=== PATIENT | male | born 1940 | race Hispanic/Latino ===

== ENCOUNTER 2018-05-11 10:44 | Inpatient (IN) | payer MEDICARE ==
[~2018-05-11] VITALS: Ht 170.2 cm; Wt 71.7 kg
[~2018-05-11 10:44] MED LIST: ACET650T9 PO; ALLO100T PO; CARV12.511 PO; FURO20TA4 PO; MEMA10TA20 PO; MOME17SP10 NS; SERT50TA12 PO; SPIR25TA PO
[2018-05-11] MEDS ORDERED: SODIUM CHLORIDE 0.9% 1000ML 1,000 ML IV ONE (11:17)
[2018-05-11 11:34] LABS: BASOPHILS % (AUTO) 1.4 % (0.0-5.0); EOSINOPHILS % (AUTO) 6.6 % (0.0-8.0); MEAN CORPUSCULAR HEMOGLOBIN 23.2 pg (27.0-33.0); MEAN CORPUSCULAR HGB CONC 32.1 g/dL (32.0-36.0); MEAN CORPUSCULAR VOLUME 72.4 fL (79-99); MONOCYTES % (AUTO) 9.1 % (3.0-13.0); NEUTROPHILS % (AUTO) 63.9 % (40.0-77.0); NUCLEATED RED BLOOD CELLS 0.3 % (0.0-0.19); PLATELET COUNT (AUTO) 178 K/uL (130-400); RED BLOOD CELL COUNT(AUTO) 2.89 MIL/uL (4.50-6.20); RED CELL DISTRIBUTION WIDTH 17.2 % (11.0-15.5); WHITE BLOOD COUNT (AUTO) 5.7 K/uL (4.8-10.8)
[2018-05-11 11:39] LABS: CREATININE 1.1 mg/dL (0.5-1.5); POTASSIUM 3.5 mmol/L (3.5-5.1)
[2018-05-11 11:43] LABS: ALBUMIN 3.5 g/dL (3.5-5.0); BILIRUBIN,TOTAL 0.3 mg/dL (0.2-1.0); TOTAL PROTEIN, SERUM 7.3 g/dL (6.0-8.3)
[2018-05-11 11:48] LABS: INR 1.15 (0.85-1.15); PARTIAL THROMBOPLASTIN TIME 33.8 SEC (26.3-35.5)
[2018-05-11 12:02] LABS: HEMATOCRIT 20.9 % (42-54)
[2018-05-11 13:01] LABS: APPEARANCE,URINE Clear (CLEAR); BILIRUBIN,URINE Negative (NEGATIVE); COLOR,URINE Yellow (YELLOW); GLUCOSE, URINE (UA) Negative (NEGATIVE); KETONES,URINE Negative (NEGATIVE); LEUKOCYTE ESTERASE ,URINE Negative (NEGATIVE); NITRATE,URINE Negative (NEGATIVE); OCCULT BLOOD,URINE Negative (NEGATIVE); PROTEIN,URINE Negative (NEGATIVE); UROBILINOGEN,URINE 0.2 mg/dL (0.2-1.0)
[2018-05-11 14:00] LABS: FERRITIN 13 ng/mL (30-400); IRON, SERUM 175 mcg/dL (65-175)
[2018-05-11] MEDS ORDERED: ACETAMINOPHEN 325 MG TAB PO PRN (15:00)
[2018-05-11] MEDS ORDERED: ONDANSETRON HCL 4 MG/2 ML VIAL IVP PRN (15:00)
[2018-05-11 15:04] LABS: HEMATOCRIT 20.8 % (42-54)
[2018-05-11 15:40] VITALS: BP 160/99
[2018-05-11] MEDS ORDERED: FLUT16H NS (18:03)
[2018-05-11] MEDS ORDERED: PARO10TA71 PO (18:03)
[2018-05-11] MEDS ORDERED: GABA-529 PO (18:03)
[2018-05-11] MEDS ORDERED: FERS325 PO (18:03)
[2018-05-11] MEDS ORDERED: SACU1TAB PO (18:03)
[2018-05-11] MEDS ORDERED: RIVA1TAB PO (18:03)
[2018-05-11] MEDS ORDERED: SODIUM CHLORIDE 0.9% 250 ML IV ONE (18:57)
[2018-05-11 19:30] VITALS: BP 147/77
[2018-05-11] MEDS ORDERED: COMPOUND IV MISC 1 EACH IVSOLN MISC PRN (19:30)
[2018-05-11] MEDS: PANTOPRAZOLE 40 MG/VIAL IVP SCH (21:13)
[2018-05-11 23:20] VITALS: BP 145/81
[2018-05-12] VITALS (18 sets, daily range): BP systolic 91–180; BP diastolic 52–92
[2018-05-12 05:15] LABS: HEMATOCRIT 29.6 % (42-54); MEAN CORPUSCULAR HGB CONC 32.6 g/dL (32.0-36.0); MEAN CORPUSCULAR VOLUME 76.7 fL (79-99); PLATELET COUNT (AUTO) 212 K/uL (130-400); RED BLOOD CELL COUNT(AUTO) 3.86 MIL/uL (4.50-6.20); RED CELL DISTRIBUTION WIDTH 20.2 % (11.0-15.5); WHITE BLOOD COUNT (AUTO) 8.8 K/uL (4.8-10.8)
[2018-05-12 05:26] LABS: INR 1.13 (0.85-1.15); PARTIAL THROMBOPLASTIN TIME 32.3 SEC (26.3-35.5); PROTHROMBIN TIME 11.8 SEC (9.6-11.6)
[2018-05-12 05:29] LABS: ALBUMIN 3.5 g/dL (3.5-5.0); BILIRUBIN,TOTAL 1.8 mg/dL (0.2-1.0); CREATININE 1.1 mg/dL (0.5-1.5); POTASSIUM 3.3 mmol/L (3.5-5.1); TOTAL PROTEIN, SERUM 7.2 g/dL (6.0-8.3)
[2018-05-12] MEDS: IRON SUCROSE COMPLEX 100 MG in SODIUM CHLORIDE 0.9% 50 ML IV SCH (08:19)
[2018-05-12] MEDS ORDERED: LIDOCAINE HCL-MPF 1% 2ML VIAL IVP PRN (10:30)
[2018-05-12] MEDS: PANTOPRAZOLE 40 MG/VIAL IVP SCH (10:32)
[2018-05-12] MEDS: POTASSIUM CHLORIDE 20MEQ/100ML 100 ML IV PRN ×2 (10:36→22:28)
[2018-05-12] MEDS ORDERED: PEG 3350/NA SULF,BICARB,CL/KCL 4000 ML SOLN PO SCH (17:30)
[2018-05-13] VITALS (21 sets, daily range): BP systolic 70–175; BP diastolic 41–94
[2018-05-13 05:13] LABS: HEMATOCRIT 27.4 % (42-54); MEAN CORPUSCULAR HEMOGLOBIN 24.1 pg (27.0-33.0); MEAN CORPUSCULAR HGB CONC 31.6 g/dL (32.0-36.0); MEAN CORPUSCULAR VOLUME 76.3 fL (79-99); NUCLEATED RED BLOOD CELLS 0.1 % (0.0-0.19); PLATELET COUNT (AUTO) 167 K/uL (130-400); RED CELL DISTRIBUTION WIDTH 20.5 % (11.0-15.5); WHITE BLOOD COUNT (AUTO) 6.8 K/uL (4.8-10.8)
[2018-05-13 05:21] LABS: POTASSIUM 3.3 mmol/L (3.5-5.1)
[2018-05-13 05:35] LABS: BASOPHILS % (MANUAL) 2 % (0-2); EOSINOPHILS % (MANUAL) 4 % (1-6); LYMPHOCYTES % (MANUAL) 17 % (22-44); MAN.DIFF COMMENT-IMPRESSION MANUAL DIFFERENTIAL; MONOCYTES % (MANUAL) 6 % (2-9); REACTIVE LYMPHOCYTES 1 % (0-0); SEGMENTED NEUTROPHILS % 70 % (40-70)
[2018-05-13] MEDS ORDERED: PROPOFOL 10 MG/ML 20ML VIAL IV ONE ×2 (06:56→07:22)
[2018-05-13] MEDS: PANTOPRAZOLE 40 MG/VIAL IVP SCH (09:35)
[2018-05-13] MEDS: IRON SUCROSE COMPLEX 100 MG in SODIUM CHLORIDE 0.9% 50 ML IV SCH (09:36)
[2018-05-13] MEDS ORDERED: POTASSIUM CHLORIDE 10% ELIXIR 20 MEQ/15 ML UDCUP PO PRN (13:15)
[2018-05-13] MEDS: LIDOCAINE HCL-MPF 1% 2ML VIAL IVP PRN (22:29)
[2018-05-13] MEDS: POTASSIUM CHLORIDE 20MEQ/100ML 100 ML IV PRN (22:29)
[2018-05-14 00:37] VITALS: BP 146/78
[2018-05-14] MEDS: LIDOCAINE HCL-MPF 1% 2ML VIAL IVP PRN (01:35)
[2018-05-14] MEDS: POTASSIUM CHLORIDE 20MEQ/100ML 100 ML IV PRN (01:35)
[2018-05-14 04:20] VITALS: BP 141/96
[2018-05-14 05:54] LABS: BASOPHILS % (AUTO) 0.8 % (0.0-5.0); EOSINOPHILS % (AUTO) 2.6 % (0.0-8.0); HEMATOCRIT 28.3 % (42-54); LYMPHOCYTES % (AUTO) 12.4 % (21.0-51.0); MEAN CORPUSCULAR HEMOGLOBIN 25.1 pg (27.0-33.0); MEAN CORPUSCULAR HGB CONC 32.4 g/dL (32.0-36.0); MEAN CORPUSCULAR VOLUME 77.5 fL (79-99); MONOCYTES % (AUTO) 7.6 % (3.0-13.0); NEUTROPHILS % (AUTO) 76.6 % (40.0-77.0); NUCLEATED RED BLOOD CELLS 0.1 % (0.0-0.19); PLATELET COUNT (AUTO) 182 K/uL (130-400); RED BLOOD CELL COUNT(AUTO) 3.65 MIL/uL (4.50-6.20); RED CELL DISTRIBUTION WIDTH 21.2 % (11.0-15.5); WHITE BLOOD COUNT (AUTO) 8.9 K/uL (4.8-10.8)
[2018-05-14 06:06] LABS: POTASSIUM 3.6 mmol/L (3.5-5.1)
[2018-05-14] MEDS: IRON SUCROSE COMPLEX 100 MG in SODIUM CHLORIDE 0.9% 50 ML IV SCH (08:41)
[2018-05-14] MEDS: PANTOPRAZOLE 40 MG/VIAL IVP SCH (08:41)
[2018-05-14 08:42] VITALS: BP 142/88
[2018-05-14 12:54] VITALS: BP 141/80
[2018-05-14 16:58] VITALS: BP 156/90
[2018-05-14 19:40] VITALS: BP 153/77
[2018-05-15 00:40] VITALS: BP 159/88
[2018-05-15 04:50] VITALS: BP 151/81
[2018-05-15 05:42] LABS: HEMATOCRIT 29.3 % (42-54); MEAN CORPUSCULAR HEMOGLOBIN 24.5 pg (27.0-33.0); MEAN CORPUSCULAR HGB CONC 31.5 g/dL (32.0-36.0); MEAN CORPUSCULAR VOLUME 77.8 fL (79-99); NUCLEATED RED BLOOD CELLS 0.1 % (0.0-0.19); PLATELET COUNT (AUTO) 166 K/uL (130-400); RED BLOOD CELL COUNT(AUTO) 3.77 MIL/uL (4.50-6.20); RED CELL DISTRIBUTION WIDTH 22.3 % (11.0-15.5); WHITE BLOOD COUNT (AUTO) 7.9 K/uL (4.8-10.8)
[2018-05-15 06:34] LABS: BAND NEUTROPHILS % (MANUAL) 2 % (0-2); EOSINOPHILS % (MANUAL) 4 % (1-6); LYMPHOCYTES % (MANUAL) 12 % (22-44); MAN.DIFF COMMENT-IMPRESSION MANUAL DIFFERENTIAL; MONOCYTES % (MANUAL) 6 % (2-9); SEGMENTED NEUTROPHILS % 76 % (40-70)
[2018-05-15 06:35] LABS: PLATELET MORPHOLOGY COMMENT SLIGHTLY DECREASED
[2018-05-15] MEDS ORDERED: DIATR MEGLU/DIATRIZOATE SODIUM 30 ML BOTTLE ONE (06:58)
[2018-05-15 08:32] VITALS: BP 148/95
[2018-05-15] MEDS: IRON SUCROSE COMPLEX 100 MG in SODIUM CHLORIDE 0.9% 50 ML IV SCH (10:09)
[2018-05-15] MEDS: PANTOPRAZOLE 40 MG/VIAL IVP SCH (10:10)
[2018-05-15] MEDS ORDERED: IOHEXOL-350 75 ML VIAL IV ONE (11:28)
[2018-05-15 11:40] VITALS: BP 152/91
[2018-05-15 17:09] VITALS: BP 143/72
[2018-05-15 20:01] VITALS: BP 150/94
[2018-05-15] MEDS: CARVEDILOL 12.5 MG TABLET PO SCH (20:56)
[2018-05-15] MEDS: ENTRESTO PO SCH (20:58)
[2018-05-16] VITALS: BP 120/72
[2018-05-16 04:00] VITALS: BP 136/71
[2018-05-16 04:50] LABS: HEMATOCRIT 28.4 % (42-54); MEAN CORPUSCULAR HEMOGLOBIN 25.6 pg (27.0-33.0); MEAN CORPUSCULAR HGB CONC 32.7 g/dL (32.0-36.0); MEAN CORPUSCULAR VOLUME 78.4 fL (79-99); PLATELET COUNT (AUTO) 173 K/uL (130-400); RED BLOOD CELL COUNT(AUTO) 3.62 MIL/uL (4.50-6.20); RED CELL DISTRIBUTION WIDTH 23.9 % (11.0-15.5); WHITE BLOOD COUNT (AUTO) 6.6 K/uL (4.8-10.8)
[2018-05-16 04:57] LABS: POTASSIUM 3.6 mmol/L (3.5-5.1)
[2018-05-16 05:13] LABS: EOSINOPHILS % (MANUAL) 9 % (1-6); LYMPHOCYTES % (MANUAL) 13 % (22-44); MAN.DIFF COMMENT-IMPRESSION MANUAL DIFFERENTIAL; MONOCYTES % (MANUAL) 6 % (2-9); SEGMENTED NEUTROPHILS % 72 % (40-70)
[2018-05-16 05:14] LABS: PLATELET MORPHOLOGY COMMENT ADEQUATE
[2018-05-16] MEDS: POTASSIUM CHLORIDE 20 MEQ ERTAB PO PRN ×2 (06:10→09:38)
[2018-05-16 08:00] VITALS: BP 152/91
[2018-05-16] MEDS: ENTRESTO PO SCH ×2 (09:00→20:36)
[2018-05-16] MEDS: PANTOPRAZOLE 40 MG/VIAL IVP SCH (09:19)
[2018-05-16] MEDS: CARVEDILOL 12.5 MG TABLET PO SCH ×2 (09:19→20:36)
[2018-05-16] MEDS: FUROSEMIDE 20 MG TABLET PO SCH (09:20)
[2018-05-16] MEDS: SPIRONOLACTONE 25 MG TAB PO SCH (09:20)
[2018-05-16 11:00] VITALS: BP 121/70
[2018-05-16 16:00] VITALS: BP 141/80
[2018-05-16 20:00] VITALS: BP 146/77
[2018-05-16] MEDS: IRON SUCROSE COMPLEX 100 MG in SODIUM CHLORIDE 0.9% 50 ML IV SCH (20:36)
[2018-05-17] VITALS (7 sets, daily range): BP systolic 124–165; BP diastolic 70–92
[2018-05-17] MEDS: PANTOPRAZOLE 40 MG/VIAL IVP SCH (08:34)
[2018-05-17] MEDS: ENTRESTO PO SCH ×2 (08:35→21:00)
[2018-05-17] MEDS: CARVEDILOL 12.5 MG TABLET PO SCH ×2 (08:35→21:56)
[2018-05-17] MEDS: SPIRONOLACTONE 25 MG TAB PO SCH (08:35)
[2018-05-17] MEDS: FUROSEMIDE 20 MG TABLET PO SCH (08:35)
[2018-05-17] MEDS: IRON SUCROSE COMPLEX 100 MG in SODIUM CHLORIDE 0.9% 50 ML IV SCH (08:35)
[2018-05-17 08:45] LABS: HEMATOCRIT 34.4 % (42-54); MEAN CORPUSCULAR HEMOGLOBIN 24.7 pg (27.0-33.0); MEAN CORPUSCULAR HGB CONC 31.2 g/dL (32.0-36.0); MEAN CORPUSCULAR VOLUME 79.4 fL (79-99); PLATELET COUNT (AUTO) 166 K/uL (130-400); RED BLOOD CELL COUNT(AUTO) 4.34 MIL/uL (4.50-6.20); RED CELL DISTRIBUTION WIDTH 25.2 % (11.0-15.5); WHITE BLOOD COUNT (AUTO) 7.2 K/uL (4.8-10.8)
[2018-05-17 08:58] LABS: ALBUMIN 3.4 g/dL (3.5-5.0); BILIRUBIN,TOTAL 0.7 mg/dL (0.2-1.0); CREATININE 1.1 mg/dL (0.5-1.5); POTASSIUM 4.5 mmol/L (3.5-5.1); TOTAL PROTEIN, SERUM 7.3 g/dL (6.0-8.3)
[2018-05-18 04:00] VITALS: BP 107/54
[2018-05-18 05:18] LABS: HEMATOCRIT 32.7 % (42-54); MEAN CORPUSCULAR HEMOGLOBIN 25.7 pg (27.0-33.0); MEAN CORPUSCULAR HGB CONC 32.2 g/dL (32.0-36.0); MEAN CORPUSCULAR VOLUME 79.7 fL (79-99); PLATELET COUNT (AUTO) 184 K/uL (130-400); RED CELL DISTRIBUTION WIDTH 25.1 % (11.0-15.5); WHITE BLOOD COUNT (AUTO) 6.2 K/uL (4.8-10.8)
[2018-05-18 05:25] LABS: CREATININE 1.1 mg/dL (0.5-1.5); POTASSIUM 3.8 mmol/L (3.5-5.1)
[2018-05-18 08:00] VITALS: BP 134/84
[2018-05-18] MEDS: ENTRESTO PO SCH ×2 (09:00→20:55)
[2018-05-18] MEDS: PANTOPRAZOLE 40 MG/VIAL IVP SCH (10:58)
[2018-05-18] MEDS: SPIRONOLACTONE 25 MG TAB PO SCH (11:01)
[2018-05-18] MEDS: FUROSEMIDE 20 MG TABLET PO SCH (11:01)
[2018-05-18] MEDS: CARVEDILOL 12.5 MG TABLET PO SCH ×2 (11:02→20:51)
[2018-05-18] MEDS: IRON SUCROSE COMPLEX 100 MG in SODIUM CHLORIDE 0.9% 50 ML IV SCH (11:04)
[2018-05-18 12:00] VITALS: BP 140/79
[2018-05-18 16:00] VITALS: BP 121/69
[2018-05-18 20:00] VITALS: BP 114/59
[2018-05-19] VITALS: BP 123/85
[2018-05-19 04:17] VITALS: BP 138/80
[2018-05-19 05:12] LABS: HEMATOCRIT 34.7 % (42-54); MEAN CORPUSCULAR HEMOGLOBIN 25.7 pg (27.0-33.0); MEAN CORPUSCULAR HGB CONC 31.9 g/dL (32.0-36.0); MEAN CORPUSCULAR VOLUME 80.5 fL (79-99); NUCLEATED RED BLOOD CELLS 0.1 % (0.0-0.19); PLATELET COUNT (AUTO) 197 K/uL (130-400); RED BLOOD CELL COUNT(AUTO) 4.31 MIL/uL (4.50-6.20); RED CELL DISTRIBUTION WIDTH 25.9 % (11.0-15.5); WHITE BLOOD COUNT (AUTO) 6.6 K/uL (4.8-10.8)
[2018-05-19 05:28] LABS: CREATININE 1.4 mg/dL (0.5-1.5); POTASSIUM 3.6 mmol/L (3.5-5.1)
[2018-05-19] MEDS ORDERED: PANTOPRAZOLE SODIUM 40 MG TABLET.DR PO SCH (07:43)
[2018-05-19] MEDS: ENTRESTO PO SCH (07:53)
[2018-05-19 08:17] VITALS: BP 137/73
[2018-05-19] MEDS: SPIRONOLACTONE 25 MG TAB PO SCH (08:27)
[2018-05-19] MEDS: FUROSEMIDE 20 MG TABLET PO SCH (08:27)
[2018-05-19] MEDS: POTASSIUM CHLORIDE 20 MEQ ERTAB PO PRN (08:27)
[2018-05-19] MEDS: IRON SUCROSE COMPLEX 100 MG in SODIUM CHLORIDE 0.9% 50 ML IV SCH (08:29)
[2018-05-19] MEDS: CARVEDILOL 12.5 MG TABLET PO SCH (08:29)
[2018-05-19 13:49] VITALS: BP 90/56
[2018-05-19 16:47] VITALS: BP 114/60
== END 2018-05-19 19:30 | disposition home or self-care (01) | DRG 375 ==
LOC: EDH 10:44 → EDHIP 13:50 → 3BH 15:47
PROVIDERS: ADMIT Internal Medicine Nephrology; ATTEND Internal Medicine Nephrology
PROC: 0DB98ZX Excision of Duodenum, Via Natural or Artificial Opening Endoscopic, Diagnostic (ICD-10-PCS; 2018-05-12)
PROC: 0DB68ZX Excision of Stomach, Via Natural or Artificial Opening Endoscopic, Diagnostic (ICD-10-PCS; 2018-05-12)
PROC: 30233N1 Transfusion of Nonautologous Red Blood Cells into Peripheral Vein, Percutaneous Approach (ICD-10-PCS; 2018-05-12)
PROC: 0DBK8ZZ Excision of Ascending Colon, Via Natural or Artificial Opening Endoscopic (ICD-10-PCS; principal; 2018-05-13)
PROC: 0DBL8ZZ Excision of Transverse Colon, Via Natural or Artificial Opening Endoscopic (ICD-10-PCS; 2018-05-13)
PROC: 0DBH8ZZ Excision of Cecum, Via Natural or Artificial Opening Endoscopic (ICD-10-PCS; 2018-05-13)
PROC: 0DBP8ZX Excision of Rectum, Via Natural or Artificial Opening Endoscopic, Diagnostic (ICD-10-PCS; 2018-05-13)
DX: C20 Malignant neoplasm of rectum (principal); I50.22 Chronic systolic (congestive) heart failure; I48.91 Unspecified atrial fibrillation; I48.0 Paroxysmal atrial fibrillation; I25.5 Ischemic cardiomyopathy; K57.30 Diverticulosis of large intestine without perforation or abscess without bleeding; D49.0 Neoplasm of unspecified behavior of digestive system; K63.5 Polyp of colon; K29.50 Unspecified chronic gastritis without bleeding; K44.9 Diaphragmatic hernia without obstruction or gangrene; M10.9 Gout, unspecified; D50.0 Iron deficiency anemia secondary to blood loss (chronic); E11.9 Type 2 diabetes mellitus without complications; E78.5 Hyperlipidemia, unspecified; F02.80 Dementia in other diseases classified elsewhere, unspecified severity, without behavioral disturbance, psychotic disturbance, mood disturbance, and anxiety; F32.9 Major depressive disorder, single episode, unspecified; G30.9 Alzheimer's disease, unspecified; G62.9 Polyneuropathy, unspecified; I11.0 Hypertensive heart disease with heart failure; I25.10 Atherosclerotic heart disease of native coronary artery without angina pectoris; I65.29 Occlusion and stenosis of unspecified carotid artery; K62.1 Rectal polyp; K80.20 Calculus of gallbladder without cholecystitis without obstruction; N28.1 Cyst of kidney, acquired; Z79.01 Long term (current) use of anticoagulants; Z79.899 Other long term (current) drug therapy; Z95.810 Presence of automatic (implantable) cardiac defibrillator; Z95.1 Presence of aortocoronary bypass graft; Z95.0 Presence of cardiac pacemaker; Z91.81 History of falling; Z87.891 Personal history of nicotine dependence; Z83.3 Family history of diabetes mellitus; Z82.49 Family history of ischemic heart disease and other diseases of the circulatory system
CPT/HCPCS: 36415; 36430; 43239; 45380; 45381; 45382; 45384; 45385; 74178; 80048; 80053; 81003; 82270; 82378; 82607; 82728; 82746; 82948; 83540; 85014; 85018; 85025; 85027; 85610; 85730; 86850; 86900; 86901; 86922; 88305; 88312; 99291; C9113; G0378; J1756; J2704; J3480; J3490; J7030; P9016; Q9963; Q9967

== ENCOUNTER → 2018-07-29 | Outpatient (CLI) | payer MEDICARE ==
[~2018-07-29] VITALS: Ht 167.6 cm; Wt 73.9 kg
[~2018-07-29] MED LIST changes: +FERS325 PO; +FLUT16H NS; +GABA-529 PO; +PARO10TA71 PO; +REGADENOSON 0.4 MG/5 ML PF SYG IVP SCH; +SACU1TAB PO
== END | disposition home or self-care (01) ==
LOC: SHCH 09:42
PROVIDERS: ATTEND Internal Medicine Cardiovascular Disease
DX: I25.10 Atherosclerotic heart disease of native coronary artery without angina pectoris (principal)
CPT/HCPCS: 78452; 93017; 96374; A9500 ×2; J2785

== ENCOUNTER 2018-12-03 12:31 | Observation (INO) | payer MEDICARE ==
[~2018-12-03] VITALS: Ht 170.2 cm; Wt 69.4 kg
[~2018-12-03 12:31] MED LIST changes: -REGADENOSON 0.4 MG/5 ML PF SYG IVP SCH
[2018-12-03 13:14] LABS: BASOPHILS % (AUTO) 1.8 % (0.0-5.0); EOSINOPHILS % (AUTO) 1.5 % (0.0-8.0); LYMPHOCYTES % (AUTO) 4.1 % (21.0-51.0); MEAN CORPUSCULAR HEMOGLOBIN 32.8 pg (27.0-33.0); MEAN CORPUSCULAR HGB CONC 33.2 g/dL (32.0-36.0); MEAN CORPUSCULAR VOLUME 98.7 fL (79-99); MONOCYTES % (AUTO) 8.6 % (3.0-13.0); PLATELET COUNT (AUTO) 112 K/uL (130-400); RED BLOOD CELL COUNT(AUTO) 5.07 MIL/uL (4.50-6.20); RED CELL DISTRIBUTION WIDTH 21.1 % (11.0-15.5); WHITE BLOOD COUNT (AUTO) 7.3 K/uL (4.8-10.8)
[2018-12-03] MEDS ORDERED: SODIUM CHLORIDE 0.9% 500ML 500 ML IV ONE (13:31)
[2018-12-03 13:32] LABS: CREATININE 0.9 mg/dL (0.5-1.5); POTASSIUM 3.5 mmol/L (3.5-5.1)
[2018-12-03 13:32] LABS: APPEARANCE,URINE Clear (CLEAR); BILIRUBIN,URINE Negative (NEGATIVE); COLOR,URINE Yellow (YELLOW); GLUCOSE, URINE (UA) Negative (NEGATIVE); KETONES,URINE Negative (NEGATIVE); LEUKOCYTE ESTERASE ,URINE Negative (NEGATIVE); NITRATE,URINE Negative (NEGATIVE); OCCULT BLOOD,URINE Small (NEGATIVE); PH,URINE 7.5 (5.0-8.0); PROTEIN,URINE Negative (NEGATIVE); UROBILINOGEN,URINE 0.2 mg/dL (0.2-1.0)
[2018-12-03 13:37] LABS: ALBUMIN 3.8 g/dL (3.5-5.0); BILIRUBIN,TOTAL 0.7 mg/dL (0.2-1.0)
[2018-12-03] MEDS ORDERED: ASPIRIN 81MG TAB.CHEW ONE (13:48)
[2018-12-03 14:11] LABS: PLATELET MORPHOLOGY COMMENT SLIGHTLY DECREASED
[2018-12-03 14:15] LABS: BACTERIA,URINE Few /HPF (None Seen); RBC,URINE 0-1 /HPF (0-1); SQUAMOUS EPITHELIAL CELL,UR 0-2 /HPF (0-2); WBC,URINE None Seen /HPF (0-1)
[2018-12-03] MEDS ORDERED: NITROGLYCERIN 1GM/1 INCH PACKET TD ONE (14:22)
[2018-12-03 15:12] VITALS: BP 177/95
[2018-12-03] MEDS ORDERED: ATOR10 PO (16:41)
[2018-12-03] MEDS ORDERED: CARV12.511 PO (16:41)
[2018-12-03] MEDS ORDERED: AMIO200T5 PO (16:41)
[2018-12-03] MEDS ORDERED: ASPI-1005 PO (16:41)
[2018-12-03] MEDS ORDERED: PANT40TA25 PO (16:41)
[2018-12-03] MEDS ORDERED: MONT10TA21 PO (16:41)
[2018-12-03] MEDS ORDERED: ONDA4TAB4 PO (16:41)
[2018-12-03 19:09] VITALS: BP 186/101
[2018-12-03] MEDS ORDERED: ACET-2247 PO (20:28)
[2018-12-03] MEDS ORDERED: CLON0.1T PO (20:28)
[2018-12-03] MEDS ORDERED: ONDANSETRON 4 MG TABLET PO PRN (20:30)
[2018-12-03] MEDS ORDERED: CLONIDINE HCL 0.1 MG TABLET PO PRN (20:30)
[2018-12-03] MEDS ORDERED: ACETAMINOPHEN 325 MG TAB PO PRN (20:30)
[2018-12-03] MEDS: MEMANTINE HCL 5 MG TABLET PO SCH (20:50)
[2018-12-03] MEDS: GABAPENTIN 100 MG CAPSULE PO SCH (20:51)
[2018-12-03] MEDS ORDERED: MONTELUKAST SODIUM 10 MG TAB PO SCH (21:00)
[2018-12-03] MEDS ORDERED: CARVEDILOL 12.5 MG TABLET PO SCH (21:00)
[2018-12-03] MEDS ORDERED: ATORVASTATIN CALCIUM 10 MG TABLET PO SCH (21:00)
[2018-12-03 21:18] VITALS: BP 135/82
[2018-12-03 21:36] LABS: TROPONIN I 0.14 ng/mL (0.00-0.06)
[2018-12-03 23:35] VITALS: BP 117/70
[2018-12-04 03:02] VITALS: BP 131/86
[2018-12-04 04:06] LABS: HEMATOCRIT 45.6 % (42-54); MEAN CORPUSCULAR HEMOGLOBIN 34.1 pg (27.0-33.0); MEAN CORPUSCULAR HGB CONC 34.8 g/dL (32.0-36.0); MEAN CORPUSCULAR VOLUME 97.9 fL (79-99); NUCLEATED RED BLOOD CELLS 0.1 % (0.0-0.19); PLATELET COUNT (AUTO) 102 K/uL (130-400); RED BLOOD CELL COUNT(AUTO) 4.65 MIL/uL (4.50-6.20); RED CELL DISTRIBUTION WIDTH 21.2 % (11.0-15.5); WHITE BLOOD COUNT (AUTO) 4.6 K/uL (4.8-10.8)
[2018-12-04 04:25] LABS: CREATININE 0.9 mg/dL (0.5-1.5); POTASSIUM 3.2 mmol/L (3.5-5.1); TROPONIN I 0.11 ng/mL (0.00-0.06)
[2018-12-04 04:26] LABS: LYMPHOCYTES % (MANUAL) 4 % (22-44); MAN.DIFF COMMENT-IMPRESSION MANUAL DIFFERENTIAL; MONOCYTES % (MANUAL) 8 % (2-9); PLATELET MORPHOLOGY COMMENT SLIGHTLY DECREASED; SEGMENTED NEUTROPHILS % 88 % (40-70)
[2018-12-04 07:15] VITALS: BP 147/89
[2018-12-04] MEDS: MEMANTINE HCL 5 MG TABLET PO SCH (08:56)
[2018-12-04] MEDS: GABAPENTIN 100 MG CAPSULE PO SCH ×2 (08:57→14:17)
[2018-12-04] MEDS ORDERED: PANTOPRAZOLE SODIUM 40 MG TABLET.DR PO SCH (09:00)
[2018-12-04] MEDS ORDERED: FERROUS SULFATE 325 MG TABLET.DR PO SCH (09:00)
[2018-12-04] MEDS ORDERED: AMIODARONE HCL 200 MG TABLET PO SCH (09:00)
[2018-12-04] MEDS ORDERED: ASPIRIN 81MG TAB.CHEW PO SCH (09:00)
[2018-12-04] MEDS ORDERED: SACUBITRIL PO SCH (09:00)
[2018-12-04] MEDS ORDERED: CARVEDILOL 6.25 MG TABLET PO SCH (09:00)
[2018-12-04] MEDS ORDERED: FUROSEMIDE 20 MG TABLET PO SCH (09:00)
[2018-12-04] MEDS ORDERED: VALSARTAN PO SCH (09:00)
[2018-12-04] MEDS ORDERED: POTASSIUM CHLORIDE 20 MEQ ERTAB PO SCH (10:00)
[2018-12-04 10:30] VITALS: BP 144/88
[2018-12-04] MEDS ORDERED: HEPARIN SODIUM/PF 100UNIT/ML 5ML SYRINGE IV SCH (15:00)
--- NOTE | 2018-12-04 16:12 | NUR ---
PT HAS BEEN DISCHARGED HOME. ALL INSTRUCTIONS GIVE TO PATIENT AND DAUGHTER PERNELL. ALL INSTRUCTIONS GIVEN UTILIZING TEACH BACK. PT TO KEEP ALL SCHEDULED FOLLOW UP APPOINTMENTS PER DAUGHTER, HE WILL F/U WITH DR. AL FERNANDO NEXT WEEK. PORT-A-CATH WAS DE-ACCESSED PER [facility] PROTOCOL, 300 UNITS (3ML) HEPARIN FLUSH ADMINISTERED. NO CHANGES TO MEDICATIONS. DR. AL FERNANDO HAD SEEN PT IN AM. [ER MD, IF CT SCAN HEAD IS NEGATIVE, PT MAY GO HOME. I CALLED DR. WOOD FERNANDO TO UPDATE, CT SCAN NO ACUTE BLEED NOTED. INSTRUCTED TO FOLLOW CARDIOLOGY RECOMMENDATIONS.
== END 2018-12-04 16:31 | disposition home or self-care (01) ==
LOC: EDH 12:31 → 2DH 15:00
PROVIDERS: ADMIT Internal Medicine Nephrology; ATTEND Internal Medicine Nephrology
DX: I25.110 Atherosclerotic heart disease of native coronary artery with unstable angina pectoris (principal); E11.9 Type 2 diabetes mellitus without complications; Z79.899 Other long term (current) drug therapy; E78.00 Pure hypercholesterolemia, unspecified; I10 Essential (primary) hypertension; I25.5 Ischemic cardiomyopathy; I48.0 Paroxysmal atrial fibrillation; I48.92 Unspecified atrial flutter; F03.90 Unspecified dementia, unspecified severity, without behavioral disturbance, psychotic disturbance, mood disturbance, and anxiety; Z85.038 Personal history of other malignant neoplasm of large intestine; Z92.21 Personal history of antineoplastic chemotherapy; Z92.3 Personal history of irradiation; Z95.1 Presence of aortocoronary bypass graft; Z95.810 Presence of automatic (implantable) cardiac defibrillator; Z82.49 Family history of ischemic heart disease and other diseases of the circulatory system; Z83.3 Family history of diabetes mellitus; I95.9 Hypotension, unspecified
CPT/HCPCS: 36415 ×2; 70450; 71046; 80048; 80053; 81001; 82550 ×2; 83874 ×2; 84484 ×3; 85025 ×2; 93005 ×3; 99284; G0378 ×26; J1642; J7040

== ENCOUNTER 2018-12-31 13:36 | Emergency (ER) | payer MEDICARE ==
[~2018-12-31 13:36] MED LIST changes: +ACET-2247 PO; -ACET650T9 PO; -ALLO100T PO; +AMIO200T5 PO; +ASPI-1005 PO; +ATOR10 PO; +CLON0.1T PO; -FLUT16H NS; -MOME17SP10 NS; +MONT10TA21 PO; +ONDA4TAB4 PO; +PANT40TA25 PO; -PARO10TA71 PO; -SERT50TA12 PO; -SPIR25TA PO
[2018-12-31 14:59] LABS: BASOPHILS % (AUTO) 0.7 % (0.0-5.0); EOSINOPHILS % (AUTO) 1.3 % (0.0-8.0); HEMATOCRIT 50.5 % (42-54); LYMPHOCYTES % (AUTO) 8.5 % (21.0-51.0); MEAN CORPUSCULAR HEMOGLOBIN 33.7 pg (27.0-33.0); MEAN CORPUSCULAR HGB CONC 33.8 g/dL (32.0-36.0); MEAN CORPUSCULAR VOLUME 99.5 fL (79-99); MONOCYTES % (AUTO) 6.6 % (3.0-13.0); NEUTROPHILS % (AUTO) 82.9 % (40.0-77.0); PLATELET COUNT (AUTO) 113 K/uL (130-400); RED BLOOD CELL COUNT(AUTO) 5.08 MIL/uL (4.50-6.20); RED CELL DISTRIBUTION WIDTH 17.8 % (11.0-15.5); WHITE BLOOD COUNT (AUTO) 7.7 K/uL (4.8-10.8)
[2018-12-31 15:19] LABS: POTASSIUM 4.4 mmol/L (3.5-5.1)
[2018-12-31 15:20] LABS: INR 1.12 (0.85-1.15); PARTIAL THROMBOPLASTIN TIME 32.4 SEC (26.3-35.5); PROTHROMBIN TIME 11.7 SEC (9.6-11.6)
[2018-12-31 15:23] LABS: ALBUMIN 3.6 g/dL (3.5-5.0); BILIRUBIN,TOTAL 0.5 mg/dL (0.2-1.0); TOTAL PROTEIN, SERUM 7.2 g/dL (6.0-8.3)
[2018-12-31 15:26] LABS: B-TYPE NATRIURETIC PEPTIDE 216 pg/mL (0-100)
== END 2018-12-31 16:07 | disposition home or self-care (01) ==
LOC: EDH 13:36
DX: S09.93XA Unspecified injury of face, initial encounter (principal); E11.9 Type 2 diabetes mellitus without complications; E78.5 Hyperlipidemia, unspecified; F03.90 Unspecified dementia, unspecified severity, without behavioral disturbance, psychotic disturbance, mood disturbance, and anxiety; I25.10 Atherosclerotic heart disease of native coronary artery without angina pectoris; Z85.038 Personal history of other malignant neoplasm of large intestine; Z95.1 Presence of aortocoronary bypass graft; W18.39XA Other fall on same level, initial encounter; Y93.01 Activity, walking, marching and hiking; Y92.89 Other specified places as the place of occurrence of the external cause; Y99.8 Other external cause status
CPT/HCPCS: 36415; 70450; 71045; 80053; 82550; 83880; 84484; 85025; 85610; 85730; 93005

== ENCOUNTER 2019-04-18 15:17 | Inpatient (IN) | payer MEDICARE ==
[~2019-04-18] VITALS: Ht 170.2 cm; Wt 61.8 kg
[2019-04-18] MEDS ORDERED: SODIUM CHLORIDE 0.9% 1000ML 1,000 ML IV ONE (15:55)
[2019-04-18 16:07] LABS: CREATININE 1.3 mg/dL (0.5-1.5); POTASSIUM 4.5 mmol/L (3.5-5.1)
[2019-04-18 16:08] LABS: INR 0.97 (0.85-1.15); PARTIAL THROMBOPLASTIN TIME 25.4 SEC (26.3-35.5); PROTHROMBIN TIME 10.2 SEC (9.6-11.6)
[2019-04-18 16:11] LABS: BASOPHILS % (AUTO) 0.5 % (0.0-5.0); EOSINOPHILS % (AUTO) 0.7 % (0.0-8.0); HEMATOCRIT 40.8 % (42-54); LYMPHOCYTES % (AUTO) 3.5 % (21.0-51.0); MEAN CORPUSCULAR HEMOGLOBIN 32.2 pg (27.0-33.0); MEAN CORPUSCULAR HGB CONC 33.3 g/dL (32.0-36.0); MEAN CORPUSCULAR VOLUME 96.8 fL (79-99); MONOCYTES % (AUTO) 3.2 % (3.0-13.0); NEUTROPHILS % (AUTO) 92.1 % (40.0-77.0); PLATELET COUNT (AUTO) 128 K/uL (130-400); RED BLOOD CELL COUNT(AUTO) 4.22 MIL/uL (4.50-6.20); RED CELL DISTRIBUTION WIDTH 15.7 % (11.0-15.5)
[2019-04-18 16:18] LABS: ALBUMIN 3.5 g/dL (3.5-5.0); BILIRUBIN,TOTAL 0.5 mg/dL (0.2-1.0); TOTAL PROTEIN, SERUM 7.4 g/dL (6.0-8.3); TROPONIN I 0.09 ng/mL (0.00-0.06)
[2019-04-18] MEDS ORDERED: CEFTRIAXONE SODIUM 1 GM ONE (16:34)
[2019-04-18 16:35] LABS: APPEARANCE,URINE Cloudy (CLEAR); BILIRUBIN,URINE Negative (NEGATIVE); COLOR,URINE Yellow (YELLOW); GLUCOSE, URINE (UA) >=1000 mg/dL (NEGATIVE); KETONES,URINE Negative (NEGATIVE); LEUKOCYTE ESTERASE ,URINE Moderate (NEGATIVE); NITRATE,URINE Negative (NEGATIVE); OCCULT BLOOD,URINE Small (NEGATIVE); PROTEIN,URINE POS 1+ mg/dL (NEGATIVE); UROBILINOGEN,URINE 0.2 mg/dL (0.2-1.0)
[2019-04-18] MEDS ORDERED: SODIUM CHLORIDE 0.9% 100 ML IV ONE (16:35)
[2019-04-18 16:47] LABS: BACTERIA,URINE Few /HPF (None Seen); WBC,URINE 26-50 /HPF (0-1)
[2019-04-18 16:48] LABS: SQUAMOUS EPITHELIAL CELL,UR Few /HPF (0-2)
--- NOTE | 2019-04-18 23:12 | NUR ---
NOTE PATIENT IS HERE FROM ED. NO FAMILY ACCOMPANYING. PATIENT IS AWAKE ALERT AND ORIENTED TO NAME, PLACE AND TIME. AND TALKATIVE. SAYS PREFERS [facility], BUT SPEAKS SOME STATELESS. [facility] IS MORE UNDERSTANDABLE TO HIM. HE SEEMS TO BE A POOR HISTORIAN AND IS NOT ABLE TO PROVIDE DETAILS OF HIS HISTORY OR WHAT MEDICATIONS HE TAKES. HE SAYS HE IS . VERY TALKATIVE, BUT TENDS TO DIVERT VERY EASILY FROM TOPIC. USED H&P ON CHART.
[2019-04-18 23:15] VITALS: BP 140/85
[2019-04-19] MEDS ORDERED: ONDANSETRON HCL 4 MG/2 ML VIAL IVP PRN (00:15)
[2019-04-19] MEDS ORDERED: LACTULOSE 20 GM/30 ML UDCUP PO PRN (00:15)
[2019-04-19] MEDS ORDERED: SODIUM CHLORIDE 0.9% 1000ML 1,000 ML IV ONE (00:43)
[2019-04-19] MEDS: SODIUM CHLORIDE 0.9% 1000ML 1,000 ML IV SCH ×3 (02:33→12:51)
[2019-04-19 04:00] VITALS: BP 92/58
[2019-04-19 05:22] LABS: HEMATOCRIT 36.2 % (42-54); MEAN CORPUSCULAR HEMOGLOBIN 31.7 pg (27.0-33.0); MEAN CORPUSCULAR HGB CONC 33.4 g/dL (32.0-36.0); MEAN CORPUSCULAR VOLUME 94.7 fL (79-99); PLATELET COUNT (AUTO) 128 K/uL (130-400); RED BLOOD CELL COUNT(AUTO) 3.82 MIL/uL (4.50-6.20); RED CELL DISTRIBUTION WIDTH 15.7 % (11.0-15.5); WHITE BLOOD COUNT (AUTO) 11.8 K/uL (4.8-10.8)
[2019-04-19 05:36] LABS: CREATININE 1.1 mg/dL (0.5-1.5)
[2019-04-19] MEDS: CEFTRIAXONE SODIUM 1 GM IVP SCH ×2 (06:36→17:41)
[2019-04-19 08:02] VITALS: BP 107/60
[2019-04-19 11:36] VITALS: BP 121/66
--- NOTE | 2019-04-19 13:38 | NUR ---
DC PLAN PATIENT IN BED, ADMITTED WITH CONFUSION. FAMILY AT BEDSIDE, ARIEL ZAMBRANO WELL. PER FAMILY, PATIENT IS SEMI-INDEPENDENT BUT NOW IS BEGINNING TO NEED FOR HELP DUE TO FORGETFUL AND INCREASE IN WEAKNESS. PER FAMILY, PATIENT LIVES ALONE BUT FAMILY TAKES TURNS BEING WITH PATIENT AND SPENDING THE NIGHT DAILY FOR OBSERVATION. ALSO HAS PROVIDER DAILY IN AM FROM WEDNESDAY TO WEDNESDAY. [employer], HE HAS WALKER, WC, HOSPITAL BED, AND SHOWER BENCH. FAMILY EXPRESSING CONCERNS DUE TO INCREASE IN WEAKNESS, MD TO BE MADE AWARE. WILL FOLLOW UP FOR DISCHARGE PLAN. Addendum: 04/19/19 at 1341 by RITA HEIN RN Amended: Links added.
[2019-04-19] MEDS ORDERED: DEXTROSE 50%-WATER 50 ML DISP.SYRIN IV PRN (13:45)
[2019-04-19] MEDS ORDERED: GLUCAGON 1MG KIT 1 MG ML IM PRN (13:45)
--- NOTE | 2019-04-19 15:21 | NUR ---
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 Addendum: 04/19/19 at 1522 by ARCELIA MACHUCA LVN LVN W Amended: Links added.
--- NOTE | 2019-04-19 16:35 | NUR ---
CM NOTE LILIANA SIGNED, CLINICALS AND PASRR FAXED TO [facility], RECEIVED. [facility] RENTAL CLERK SEEING PATENT, PENDING AUTHORIZATION.
[2019-04-19 16:44] VITALS: BP 109/64
[2019-04-19] MEDS: INSULIN HUMULIN R 100 UNIT/ML 3ML SQ SCH (17:34)
[2019-04-19 21:06] VITALS: BP 123/48
[2019-04-19 23:56] VITALS: BP 148/85
[2019-04-20] MEDS: INSULIN HUMULIN R 100 UNIT/ML 3ML SQ SCH
[2019-04-20 04:08] VITALS: BP 131/72
[2019-04-20] MEDS: SODIUM CHLORIDE 0.9% 1000ML 1,000 ML IV SCH (04:37)
[2019-04-20] MEDS: CEFTRIAXONE SODIUM 1 GM IVP SCH (04:38)
[2019-04-20 07:33] VITALS: BP 111/67
--- NOTE | 2019-04-20 10:40 | NUR ---
CM NOTE PER RICHARD AT [facility], RECEIVED AUTHORIZATION. POSS DC TODAY
[2019-04-20 11:40] VITALS: BP 113/61
[2019-04-20 15:34] VITALS: BP 164/81
--- NOTE | 2019-04-20 16:28 | NUR ---
NURSING NOTE Discharge done. Called report to Sandro at [facility]. Pending for transport to arrive. Will keep Port-A-Cath to right chest accessed as discussed with, and requested by, Sandro. Pictures of wound taken yesterday.
== END 2019-04-20 17:25 | DRG 71 ==
LOC: EDH 15:17 → EDHIP 18:57 → OBSVTOIN 18:57 → 3AH 23:19
PROVIDERS: ADMIT Internal Medicine; ATTEND Internal Medicine
DX: G93.40 Encephalopathy, unspecified (principal); N39.0 Urinary tract infection, site not specified; I42.9 Cardiomyopathy, unspecified; R62.7 Adult failure to thrive; D64.9 Anemia, unspecified; D69.6 Thrombocytopenia, unspecified; E11.9 Type 2 diabetes mellitus without complications; I11.0 Hypertensive heart disease with heart failure; I25.10 Atherosclerotic heart disease of native coronary artery without angina pectoris; I48.91 Unspecified atrial fibrillation; I50.9 Heart failure, unspecified; Z68.21 Body mass index [BMI] 21.0-21.9, adult; Z87.19 Personal history of other diseases of the digestive system; Z90.49 Acquired absence of other specified parts of digestive tract; Z92.3 Personal history of irradiation; Z93.3 Colostomy status; Z92.21 Personal history of antineoplastic chemotherapy; Z87.440 Personal history of urinary (tract) infections; Z85.048 Personal history of other malignant neoplasm of rectum, rectosigmoid junction, and anus
CPT/HCPCS: 36415; 70450; 71046; 80048; 80053; 81001; 82140; 82270; 82550; 82948; 83605; 83874; 84145; 84484; 85025; 85027; 85610; 85730; 93005; 97039; G0378; J0696; J7030

== ENCOUNTER 2019-10-18 18:30 | Emergency (ER) | payer OTHER, MEDICARE ==
[~2019-10-18 18:30] MED LIST changes: -ACET-2247 PO; +ACET1TAB12 PO; -AMIO200T5 PO; +AMIO200T6 PO; -ATOR10 PO; +DOCU-116 PO; -MEMA10TA20 PO; +MEMA10TA55 PO; -PANT40TA25 PO; +PANT40TA54 PO
[2019-10-18 20:20] LABS: BASOPHILS % (AUTO) 0.5 % (0.0-5.0); EOSINOPHILS % (AUTO) 1.3 % (0.0-8.0); HEMATOCRIT 34.3 % (42-54); LYMPHOCYTES % (AUTO) 8.8 % (21.0-51.0); MEAN CORPUSCULAR HEMOGLOBIN 30.5 pg (27.0-33.0); MEAN CORPUSCULAR HGB CONC 32.4 g/dL (32.0-36.0); MEAN CORPUSCULAR VOLUME 94.2 fL (79-99); MONOCYTES % (AUTO) 7.5 % (3.0-13.0); NEUTROPHILS % (AUTO) 81.3 % (40.0-77.0); PLATELET COUNT (AUTO) 172 K/uL (130-400); RED BLOOD CELL COUNT(AUTO) 3.64 MIL/uL (4.50-6.20); RED CELL DISTRIBUTION WIDTH 14.3 % (11.0-15.5); WHITE BLOOD COUNT (AUTO) 9.8 K/uL (4.8-10.8)
[2019-10-18 20:30] LABS: CREATININE 1.4 mg/dL (0.5-1.5); POTASSIUM 3.3 mmol/L (3.5-5.1)
[2019-10-18 20:35] LABS: ALBUMIN 3.3 g/dL (3.5-5.0); BILIRUBIN,TOTAL 0.3 mg/dL (0.2-1.0); INR 1.06 (0.85-1.15); PARTIAL THROMBOPLASTIN TIME 30.6 SEC (26.3-35.5); PROTHROMBIN TIME 11.4 SEC (9.6-11.6); TOTAL PROTEIN, SERUM 6.5 g/dL (6.0-8.3)
[2019-10-18 20:45] LABS: APPEARANCE,URINE Clear (CLEAR); BILIRUBIN,URINE Negative (NEGATIVE); COLOR,URINE Yellow (YELLOW); GLUCOSE, URINE (UA) Negative (NEGATIVE); KETONES,URINE Trace mg/dL (NEGATIVE); LEUKOCYTE ESTERASE ,URINE Negative (NEGATIVE); NITRATE,URINE Negative (NEGATIVE); OCCULT BLOOD,URINE Negative (NEGATIVE); PROTEIN,URINE Negative (NEGATIVE)
== END 2019-10-18 23:11 | disposition home or self-care (01) ==
LOC: EDH 18:30
DX: J12.89 Other viral pneumonia (principal); R53.1 Weakness; Z20.828 Contact with and (suspected) exposure to other viral communicable diseases; E11.9 Type 2 diabetes mellitus without complications; I10 Essential (primary) hypertension; F03.90 Unspecified dementia, unspecified severity, without behavioral disturbance, psychotic disturbance, mood disturbance, and anxiety; I25.10 Atherosclerotic heart disease of native coronary artery without angina pectoris; Z95.1 Presence of aortocoronary bypass graft; Z95.0 Presence of cardiac pacemaker; Z87.891 Personal history of nicotine dependence
CPT/HCPCS: 36415; 70450; 71045; 73521; 80053; 81003; 82550; 82948; 84484; 85025; 85610; 85730; 87635; 93005

== ENCOUNTER 2020-04-02 14:34 | Observation (INO) | payer OTHER, MEDICARE ==
[~2020-04-02] VITALS: Ht 167.6 cm; Wt 67.1 kg
[~2020-04-02 14:34] MED LIST changes: -ACET1TAB12 PO; -CLON0.1T PO
[2020-04-02 15:13] LABS: BASOPHILS % (AUTO) 0.8 % (0.0-5.0); EOSINOPHILS % (AUTO) 2.3 % (0.0-8.0); LYMPHOCYTES % (AUTO) 11.4 % (21.0-51.0); MEAN CORPUSCULAR HEMOGLOBIN 30.9 pg (27.0-33.0); MEAN CORPUSCULAR VOLUME 93.5 fL (79-99); MONOCYTES % (AUTO) 13.6 % (3.0-13.0); NEUTROPHILS % (AUTO) 71.4 % (40.0-77.0); PLATELET COUNT (AUTO) 160 K/uL (130-400); RED BLOOD CELL COUNT(AUTO) 3.53 MIL/uL (4.50-6.20); RED CELL DISTRIBUTION WIDTH 15.2 % (11.0-15.5); WHITE BLOOD COUNT (AUTO) 6.2 K/uL (4.8-10.8)
[2020-04-02 15:36] LABS: CREATININE 1.3 mg/dL (0.5-1.5); POTASSIUM 3.3 mmol/L (3.5-5.1)
[2020-04-02 15:41] LABS: BILIRUBIN,TOTAL 0.4 mg/dL (0.2-1.0); TOTAL PROTEIN, SERUM 6.3 g/dL (6.0-8.3)
[2020-04-02 15:54] LABS: APPEARANCE,URINE CLEAR (CLEAR); BILIRUBIN,URINE NEGATIVE (NEGATIVE); COLOR,URINE YELLOW (YELLOW); GLUCOSE, URINE (UA) NEGATIVE (NEGATIVE); KETONES,URINE NEGATIVE (NEGATIVE); LEUKOCYTE ESTERASE ,URINE NEGATIVE (NEGATIVE); NITRATE,URINE NEGATIVE (NEGATIVE); OCCULT BLOOD,URINE NEGATIVE (NEGATIVE); PROTEIN,URINE NEGATIVE (NEGATIVE); UROBILINOGEN,URINE 0.2 mg/dL (0.2-1.0)
[2020-04-02] MEDS ORDERED: POTASSIUM CHLORIDE 20 MEQ ERTAB PO ONE (16:07)
[2020-04-02] MEDS ORDERED: ONDANSETRON HCL 4 MG/2 ML VIAL IVP PRN (18:45)
[2020-04-02] MEDS: INSULIN R PO SS1/2 SQ SCH (21:00)
[2020-04-02 23:30] VITALS: BP 136/64
[2020-04-03 00:12] VITALS: BP 128/61
--- NOTE | 2020-04-03 00:19 | NUR ---
PATIENT RECEIVED FROM ER, REPORT FROM [facility]. PT IS FROM [facility], HE IS S/P FALL FROM STANDING POSITION AT [facility]. DX FALL AND ELEVATED TROPONIN. PATIENT IS VERY CONFUSED YET FOLLOWS COMMANDS. HE HAS A HISTORY OF DEMENTIA. PATIENT IS HIGH RISK FOR FALL. DOOR LEFT OPEN FOR SUPERVISION. ALL INFORMATION OBTAINED VIA [facility] RECORDS AND PERVIOUS ADMISSIONS. TELE WITH AV PACED 60. WILL CONT TO MONITOR CLOSELY. BED ALARM IN ACTIVE. ASSESSMENT DOCUMENTED. Addendum: 04/03/20 at 0022 by PATT FERNANDO RN RN Amended: Links added.
[2020-04-03] MEDS ORDERED: ACETAMINOPHEN 325 MG TAB PO PRN (00:30)
[2020-04-03] MEDS ORDERED: TRAMADOL HCL 50 MG TABLET PO PRN (00:30)
[2020-04-03] MEDS ORDERED: TRAM50TA4 PO (00:40)
[2020-04-03] MEDS ORDERED: ACET325T51 PO (00:40)
[2020-04-03 01:27] LABS: TROPONIN I 0.09 ng/mL (0.00-0.06)
[2020-04-03 04:12] VITALS: BP 143/66
--- NOTE | 2020-04-03 05:30 | NUR ---
PATIENT TRANSFERRED TO [facility] FOR 2:1 SUPERVISION D/T HIGH RISK FOR FALLS AND DEMENTIA.
[2020-04-03] MEDS: INSULIN R PO SS1/2 SQ SCH ×4 (05:33→20:48)
[2020-04-03 06:31] LABS: HEMATOCRIT 34.7 % (42-54); MEAN CORPUSCULAR HEMOGLOBIN 30.6 pg (27.0-33.0); MEAN CORPUSCULAR HGB CONC 32.9 g/dL (32.0-36.0); MEAN CORPUSCULAR VOLUME 93.3 fL (79-99); RED BLOOD CELL COUNT(AUTO) 3.72 MIL/uL (4.50-6.20); WHITE BLOOD COUNT (AUTO) 6.6 K/uL (4.8-10.8)
[2020-04-03 06:56] LABS: CREATININE 1.2 mg/dL (0.5-1.5); POTASSIUM 3.6 mmol/L (3.5-5.1)
[2020-04-03 07:36] VITALS: BP 154/86
[2020-04-03 08:00] VITALS: BP 133/54
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
[2020-04-03] MEDS: ***HM***(Sacubitril/Valsartan (Entresto 24 mg-26 mg Tablet) 1 EACH PO SCH ×2 (09:00→20:48)
[2020-04-03] MEDS: FERROUS SULFATE 325 MG TABLET.DR PO SCH (10:50)
[2020-04-03] MEDS: DOCUSATE SODIUM 100 MG CAP PO SCH ×2 (10:50→20:47)
[2020-04-03] MEDS: MEMANTINE HCL 5 MG TABLET PO SCH ×2 (10:50→20:47)
[2020-04-03] MEDS: FUROSEMIDE 20 MG TABLET PO SCH (10:50)
[2020-04-03] MEDS: PANTOPRAZOLE SODIUM 40 MG TABLET.DR PO SCH (10:50)
[2020-04-03] MEDS: AMIODARONE HCL 200 MG TABLET PO SCH (10:50)
[2020-04-03] MEDS: GABAPENTIN 100 MG CAPSULE PO SCH ×3 (10:51→20:47)
[2020-04-03] MEDS: ASPIRIN 81MG TAB.CHEW PO SCH (10:51)
[2020-04-03] MEDS: CARVEDILOL 12.5 MG TABLET PO SCH ×2 (10:53→20:48)
--- NOTE | 2020-04-03 11:21 | NUR ---
[facility] CM met with pt, currently sitting on chair, calm, answered questions slowly, alert to self and place only. CM DC Tag Meter Operator called daughter on facesheet, spoke to Milagros Juan discussed dc plans. As per daughter pt is semi-independent prior to admission, currently at [facility] short term, before lives at home with daughter and son. Pt has a walker, wheelchair, cane, provider 33hrs/wk. Daughter and son able to assist with transportations and needs. Daughter agreeable for pt to return to [facility] to continue care, telephone consent obtained LILIANA for [facility] [place], witnessed by Thierno ARENAS and Marlena Millard DC plan to SNF. CM to continue to follow up. Addendum: 04/03/20 at 1127 by VIVIAN WASHINGTON LVN Amended: Links added.
--- NOTE | 2020-04-03 11:28 | NUR ---
CM Note: [facility] pending approval CM DC Collision Mechanic faxed and emailed clinicals, PASRR, Covid Transfer Form, Covid rapid result done 04/02, confirmation received. CM spoke to Katia made aware pt on 2:1 re: hx fall and dementia. Per Katia pt will need reauth. Pending approval. EMS arranged and faxed for today in case, primary nurse to call [facility] once pt ready to DC. Primary nurse Thierno ARENAS aware. CM to continue to follow up.
--- NOTE | 2020-04-03 15:00 | NUR ---
NOTE DR JONAS MADE ROUNDS. ORDERED LABS FOR AM. NO CONSULTS ORDERED. CHECKED IMAGING RESULTS AND LAB RESULTS AND HE ORDERED TO PLAN TO DC BACK TO [place] TOMORROW.
[2020-04-03 16:00] VITALS: BP 107/57
[2020-04-03 20:00] VITALS: BP 137/76
[2020-04-03] MEDS: MONTELUKAST SODIUM 10 MG TAB PO SCH (20:47)
--- NOTE | 2020-04-03 20:50 | NUR ---
MEDS SHIFT ASSESSMENT DONE, PLEASE REFER TO CHART. PT IS CONVERSING WITH HIMSELF BUT IS INCOHERENT. DUE MEDS ADMINISTERED, TOLERATED WELL. PT VERY COOPERATIVE AT THIS TIME. KEPT COMFORTALBE AND RESTED IN BED. SITTER AT PT'S DOOR KEEPING CLOSE WATCH ON PT. Addendum: 04/03/20 at 2323 by TOMAS ESPOSITO RN RN Amended: Links added.
[2020-04-04] VITALS: BP 139/63
--- NOTE | 2020-04-04 00:49 | NUR ---
COMBATIVE PT AWAKENS AND IS VERY CONFUSED. TRIED TO RE-ORIENT PT TO NO AVAIL. PT STARTED TO GET COMBATIVE AND WANTING TO GET OUT OF BED. THERE IS NO REASONING WITH PT AT THIS TIME. PAGED DR STEPHENS VIA ANSWERING SERVICE. CALLED BACK AND NEW MED ORDER GIVEN. WILL MEDICATE PT.
[2020-04-04] MEDS ORDERED: HALOPERIDOL LACTATE 5 MG/ML VIAL ONE (00:53)
[2020-04-04] MEDS ORDERED: HALOPERIDOL LACTATE 5 MG/ML VIAL IV PRN (01:00)
--- NOTE | 2020-04-04 02:30 | NUR ---
RE-ASSESS PT IS CALM AND QUITE AT THIS TIME. NO DISTRESS NOTED. WILL CONTINUE TO KEEP ON CLOSE MONITORING.
[2020-04-04 04:00] VITALS: BP 134/68
[2020-04-04 04:19] LABS: MEAN CORPUSCULAR HEMOGLOBIN 30.3 pg (27.0-33.0); MEAN CORPUSCULAR HGB CONC 32.7 g/dL (32.0-36.0); MEAN CORPUSCULAR VOLUME 92.9 fL (79-99); RED BLOOD CELL COUNT(AUTO) 3.23 MIL/uL (4.50-6.20); RED CELL DISTRIBUTION WIDTH 14.6 % (11.0-15.5); WHITE BLOOD COUNT (AUTO) 7.7 K/uL (4.8-10.8)
[2020-04-04 04:28] LABS: CREATININE 1.3 mg/dL (0.5-1.5); POTASSIUM 3.4 mmol/L (3.5-5.1)
--- NOTE | 2020-04-04 05:46 | NUR ---
NICK GONZALEZ HAD INFORMED FOOD EXPEDITOR THAT PT HAD PULLED OUT HIS PIV WITH CATHETER INTACT. WILL RE-INSERT PIV. FOR MORE CARE.
[2020-04-04] MEDS: INSULIN R PO SS1/2 SQ SCH ×4 (06:03→20:38)
[2020-04-04] MEDS: ***HM***(Sacubitril/Valsartan (Entresto 24 mg-26 mg Tablet) 1 EACH PO SCH ×2 (09:00→20:38)
[2020-04-04] MEDS: GABAPENTIN 100 MG CAPSULE PO SCH ×3 (10:15→20:37)
[2020-04-04] MEDS: PANTOPRAZOLE SODIUM 40 MG TABLET.DR PO SCH (10:15)
[2020-04-04] MEDS: CARVEDILOL 12.5 MG TABLET PO SCH ×2 (10:16→20:38)
[2020-04-04] MEDS: AMIODARONE HCL 200 MG TABLET PO SCH (10:16)
[2020-04-04] MEDS: FUROSEMIDE 20 MG TABLET PO SCH (10:16)
[2020-04-04] MEDS: ASPIRIN 81MG TAB.CHEW PO SCH (10:17)
[2020-04-04] MEDS: FERROUS SULFATE 325 MG TABLET.DR PO SCH (10:17)
[2020-04-04] MEDS: MEMANTINE HCL 5 MG TABLET PO SCH ×2 (10:17→20:37)
[2020-04-04] MEDS: DOCUSATE SODIUM 100 MG CAP PO SCH ×2 (10:17→20:37)
--- NOTE | 2020-04-04 11:21 | NUR ---
CECILE Note: [facility] pending approval CM spoke to Jerilyn marin/[facility] Fer[facility], covering for Katia Castrejon today. Received updated clinicals this morning. Pt currently pending approval at this time. EMS arranged and faxed in case, primary nurse to call [facility] once pt ready to DC. Primary nurse Jinny ARENAS aware. CM to continue to follow up.
--- NOTE | 2020-04-04 15:40 | NUR ---
CM Note: [facility] approval CM spoke to Harinder Garcia, pt has approval for [facility], forwarded approval notification to Jerilyn Ko. Spoke to Jerilyn, confirmed approval, pt ok to transfer today. EMS arranged and faxed for today, primary nurse to call [facility] once pt ready to DC. Primary nurse Jinny RN and charge nurse Manas ARENAS aware. Instructed Manas ARENAS to obtain DC order and med recon from Dr Ayala. Dr Ayala did not want to give DC order and sign med recon w/Jinny ARENAS when he rounded this afternoon until he has approval for [facility]. Primary nurse Jinny ARENAS aware. Payal Castrejon RNM Director also made aware. CM to continue to follow up.
[2020-04-04 16:00] VITALS: BP 158/56
--- NOTE | 2020-04-04 16:56 | NUR ---
CM Note: Dr Ayala refused to DC pt As per Charge Nurse Manas ARENAS, made contact w/Dr Ayala. MD refused to dc pt today. verbalized already rounded for today, will dc pt tomorrow. Payal Castrejon RNCCM Director made aware. Avoidable days entered on Dr Ayala. CM to continue to follow up.
--- NOTE | 2020-04-04 20:30 | NUR ---
MEDS SHIFT ASSESSMENT DONE, PLEASE REFER TO CHART. DUE MEDS ADMINISTERED, TOLERATED WELL. CALL LIGHT WITHIN REACH. WILL MONITOR PT. SITTER AT BEDSIDE FOR CLOSE MONITORING. Addendum: 04/04/20 at 2334 by TOMAS ESPOSITO RN RN Amended: Links added.
[2020-04-04] MEDS: MONTELUKAST SODIUM 10 MG TAB PO SCH (20:38)
--- NOTE | 2020-04-05 02:11 | NUR ---
RESTLESS PT AWAKENED, VERY CONFUSED, WANTING TO GET OUT OF BED TO GO HOME. SITTER FAILED TO RE-ORIENT PT AND UNABLE TO CALM DOWN. MEDICATED WITH HALDOL IV. KEPT ON BR FOR NOW. WILL RE-ASSESS PT.
[2020-04-05 04:16] LABS: BASOPHILS % (AUTO) 1.1 % (0.0-5.0); EOSINOPHILS % (AUTO) 2.1 % (0.0-8.0); HEMATOCRIT 30.3 % (42-54); LYMPHOCYTES % (AUTO) 9.5 % (21.0-51.0); MEAN CORPUSCULAR HEMOGLOBIN 30.7 pg (27.0-33.0); MEAN CORPUSCULAR VOLUME 92.9 fL (79-99); MONOCYTES % (AUTO) 9.5 % (3.0-13.0); NEUTROPHILS % (AUTO) 77.3 % (40.0-77.0); PLATELET COUNT (AUTO) 143 K/uL (130-400); RED BLOOD CELL COUNT(AUTO) 3.26 MIL/uL (4.50-6.20); RED CELL DISTRIBUTION WIDTH 14.9 % (11.0-15.5); WHITE BLOOD COUNT (AUTO) 5.7 K/uL (4.8-10.8)
[2020-04-05 04:26] LABS: CREATININE 1.2 mg/dL (0.5-1.5); POTASSIUM 3.8 mmol/L (3.5-5.1)
--- NOTE | 2020-04-05 05:30 | NUR ---
BATH SITTER GAVE PT A BED BATH, TOLERATED ACTIVITY WELL. KEPT COMFORTABLE IN BED. FOR MORE CARE.
[2020-04-05] MEDS: INSULIN R PO SS1/2 SQ SCH ×2 (06:38→11:30)
--- NOTE | 2020-04-05 08:00 | NUR ---
AM ASSESSMENT. 1:[address] PT. AT THIS TIME LOOKS CALM.
[2020-04-05] MEDS: ***HM***(Sacubitril/Valsartan (Entresto 24 mg-26 mg Tablet) 1 EACH PO SCH (09:00)
[2020-04-05] MEDS: AMIODARONE HCL 200 MG TABLET PO SCH (10:03)
[2020-04-05] MEDS: GABAPENTIN 100 MG CAPSULE PO SCH ×2 (10:04→15:49)
[2020-04-05] MEDS: MEMANTINE HCL 5 MG TABLET PO SCH (10:04)
[2020-04-05] MEDS: FUROSEMIDE 20 MG TABLET PO SCH (10:04)
[2020-04-05] MEDS: PANTOPRAZOLE SODIUM 40 MG TABLET.DR PO SCH (10:05)
[2020-04-05] MEDS: DOCUSATE SODIUM 100 MG CAP PO SCH (10:05)
[2020-04-05] MEDS: ASPIRIN 81MG TAB.CHEW PO SCH (10:05)
[2020-04-05] MEDS: FERROUS SULFATE 325 MG TABLET.DR PO SCH (10:05)
[2020-04-05 10:07] VITALS: BP 131/67
[2020-04-05] MEDS: CARVEDILOL 12.5 MG TABLET PO SCH (10:07)
--- NOTE | 2020-04-05 15:40 | NUR ---
HAS BEEN DISCHARGED BACK TO [facility]. MED. RECONCILIATION LIST HAS BEEN FAXED AND REPORT GIVEN TO EZ JEONG LVN. [facility] WILL PROVIDE TRANSPORTATION.
--- NOTE | 2020-04-05 20:15 | NUR ---
DAUGHTER NOTIFIED OF HER FATHER BEING TRANSFERRED BACK TO [facility] PROVIDED TRANSPORTATION. DISCHARGE PACKET GIVEN TO STAFF FOR PATIENT/FAMILY, COPY OF CHART.WITH ORDERS SENT TO NURSES. SALINE LOCK REMOVED.
== END 2020-04-05 17:30 ==
LOC: EDH 14:34 → EDHIP 18:15 → 3AH 21:38 → 3CH 04-03 05:30
PROVIDERS: ADMIT Internal Medicine Nephrology; ATTEND Internal Medicine Nephrology
DX: F03.90 Unspecified dementia, unspecified severity, without behavioral disturbance, psychotic disturbance, mood disturbance, and anxiety (principal); Z20.89 Contact with and (suspected) exposure to other communicable diseases; R41.82 Altered mental status, unspecified; R79.89 Other specified abnormal findings of blood chemistry; S40.022A Contusion of left upper arm, initial encounter; I12.9 Hypertensive chronic kidney disease with stage 1 through stage 4 chronic kidney disease, or unspecified chronic kidney disease; E11.22 Type 2 diabetes mellitus with diabetic chronic kidney disease; E11.21 Type 2 diabetes mellitus with diabetic nephropathy; N18.9 Chronic kidney disease, unspecified; D63.8 Anemia in other chronic diseases classified elsewhere; E78.5 Hyperlipidemia, unspecified; I25.10 Atherosclerotic heart disease of native coronary artery without angina pectoris; R29.6 Repeated falls; Z85.038 Personal history of other malignant neoplasm of large intestine; Z95.0 Presence of cardiac pacemaker; Z95.1 Presence of aortocoronary bypass graft; Z91.81 History of falling; Z90.49 Acquired absence of other specified parts of digestive tract; Z79.82 Long term (current) use of aspirin; Z79.899 Other long term (current) drug therapy; W18.39XA Other fall on same level, initial encounter; Y92.89 Other specified places as the place of occurrence of the external cause; Y93.89 Activity, other specified
CPT/HCPCS: 36415 ×4; 71045; 73060; 80048 ×3; 80053; 80061; 81003; 82550; 82948 ×10; 83874; 84484 ×3; 85025 ×2; 85027 ×2; 87426; 93005; 96374; 97039 ×5; 97161; 99285; G0378 ×7; G8979; G8980; G8981; G8982; G8983; J1630 ×2; U0003